=== PATIENT | female | born 2000 | race Caucasian/White ===

== ENCOUNTER 2018-11-09 14:48 | Outpatient (CLI) | payer OTHER ==
[~2018-11-09] VITALS: Ht 157.5 cm; Wt 75.1 kg
[~2018-11-09 14:48] MED LIST: AMOX500C6
[2018-11-09 15:30] VITALS: BP 112/66; PULSE 94; RESP 18; Ht 157.5 cm; Wt 75.1 kg
[2018-11-09] MEDS ORDERED: PNV11TAB PO (15:32)
--- NOTE | 2018-11-09 18:01 | PN ---
Triage Information Date/Time 11/09/2018 Reason for visit: Patient was claiming an 11pound puppy was bouncing on her abdomen Weeks of Gestation 34 weeks and 4 7 /Para 1 para 0 Diabetes: none Hypertention: none Additional information Patient denies any uterine contractions Objective Vital Signs Date Temp Pulse Resp B/P (MAP) Pulse Ox O2 O2 Flow FiO2 Time Delivery Rate 11/09/18 98.4 94 18 112/66 15:30 (81) Heart Rate Comments Reactive Contractions: None Exam Cervix is long and closed Results/Medications Imaging Results Normal biophysical profile. Disposition: Discharge Assessment/Plan Patient with no uterine contractions and currently feels better This service will follow patient as outpatient AZALIA CORTES MD Nov 09, 2018 18:01
--- NOTE | 2018-11-09 18:29 | TRIAGE ---
OB Triage Datetime Report Generated by CPN: 11/09/2018 18:28 Datetime: 11/09/2018 18:07 Stage of : OB Triage Datetime: 11/09/2018 17:16 Labor Evaluation Frequency: 0 Monitor Mode: External Pattern: Normal: <= 5 Contractions in 10 Minutes Resting Tone [place]: Relaxed Heart Rate FHR Baseline Rate: 135 Monitor Mode: External US Variability: Moderate 6-25 bpm Accelerations: 10X10 Decelerations: None Category: Category I Pain Assessment Pain Scale: 0 Pain Presence: None/Denies Pain Type: N/A Pain Goal: 3 Pain Relief Measures: Comfort Measures Datetime: 11/09/2018 16:23 Labor Evaluation Frequency: 7-10 Monitor Mode: External Duration (sec)2399: 50-60 Quality: Mild Pattern: Normal: <= 5 Contractions in 10 Minutes Resting Tone [place]: Relaxed Heart Rate FHR Baseline Rate: 145 Monitor Mode: External US Variability: Moderate 6-25 bpm Accelerations: 10X10 Decelerations: None Category: Category I Pain Assessment Pain Scale: 0 Pain Presence: None/Denies Pain Type: N/A Pain Goal: 3 Pain Relief Measures: Comfort Measures Datetime: 11/09/2018 15:56 Stage of : OB Triage Datetime: 11/09/2018 15:22 Stage of : OB Triage Assessment Type: Triage Maternal Assessment Level of Consciousness: Fully Conscious DTR's/Clonus: DTRs 2+; No Clonus Headache: Denies Blurred Vision: No Respiratory Effort: Unlabored; Regular Rhythm; Equal Expansion Breath Sounds, Left: Clear and Equal Breath Sounds, Right: Clear and Equal Nausea/Vomiting: Denies RUQ Epigastric Pain: Denies Facial Edema: None Temperature Route: Axillary Fall Risk Assessment History of Falling: (0) No Secondary Diagnosis: (0) No Ambulatory Aid: (0) Bedrest/Nurse Assist IV Therapy: (0) No Gait: (0) Normal/Bedrest/Immobile Mental Status: (0) Oriented to Own Ability Fall Score: 0 Fall Risk Score Definition: No Risk: No action required Labor Evaluation Frequency: X1 Monitor Mode: External Duration (sec)2399: 50 Quality: Mild Pattern: Normal: <= 5 Contractions in 10 Minutes Resting Tone [place]: Relaxed Heart Rate FHR Baseline Rate: 135 Monitor Mode: External US Variability: Moderate 6-25 bpm Accelerations: 10X10 Decelerations: None Pain Assessment Pain Scale: 8 Pain Presence: Intermittent Pain Type: Cramping Pain Location: Abdomen Pain Goal: 3 Pain Relief Measures: Comfort Measures Datetime: 11/09/2018 15:21 EGA: 34.1 Datetime: 11/09/2018 15:20 Time of Arrival: 11/09/2018 14:40 Arrived By: Ambulatory Arrived From: Home Chief Complaint: C/O 11LB DOG RAN ACROSS HER ABDOMEN, DENIES BLEEDING, OR LEAKING, BUT HAS INTERMI TTENT ABDOMINAL PAIN Movement: Present Contractions: Denies/Absent Rupture of Membranes: Denies Vaginal Bleeding: None Vaginal Discharge: Denies Recent Sexual Intercouse: Denies Abdominal Trauma: Not Applicable Patient Complaints: Cramping Time Provider Notified: 11/09/2018 15:56 Provider Notified: john Initial Plan: MONITOR, bpp, ve
== END 2018-11-09 18:20 | disposition home or self-care (01) ==
LOC: OBT 14:48 → L-D 14:48 → OBT 18:20
PROVIDERS: ATTEND Obstetrics & Gynecology
DX: O60.03 Preterm labor without delivery, third trimester (principal); Z3A.34 34 weeks gestation of pregnancy
CPT/HCPCS: 76818; G0463

== ENCOUNTER 2018-11-19 08:55 | Outpatient (CLI) | payer OTHER ==
[~2018-11-19] VITALS: Ht 157.5 cm; Wt 75.8 kg
[~2018-11-19 08:55] MED LIST changes: -AMOX500C6; +PNV11TAB PO
[2018-11-19 09:20] VITALS: BP 107/67; RESP 18
[2018-11-19 09:21] VITALS: Ht 157.5 cm; Wt 75.8 kg
[2018-11-19] MEDS ORDERED: LACTATED RINGER'S 1,000 ML IV SCH (10:00)
[2018-11-19] MEDS ORDERED: TERBUTALINE 1 MG/ML INJ SC ONE (10:00)
--- NOTE | 2018-11-19 11:25 | PN ---
Triage Information Date/Time Reason for visit: Uterine contractions Weeks of Gestation 35+ /Para 1/0 Diabetes: none Hypertention: none Objective Vital Signs Date Temp Pulse Resp B/P (MAP) Pulse Ox O2 O2 Flow FiO2 Time Delivery Rate 11/19/18 98.5 18 107/67 Room Air 09:20 (80) Heart Rate: 140's Contractions: None Results/Medications Result Diagram: 11/19/18 1040 Results 24 hrs Laboratory Tests Test 11/19/18 09:05 11/19/18 10:40 Urine Color YELLOW Urine Clarity SLIGHTLY CLOUDY A Urine pH 6.0 Urine Specific [place] 1.016 Urine Ketones NEGATIVE Urine Nitrite NEGATIVE Urine Bilirubin NEGATIVE Urine Urobilinogen NEGATIVE Urine Leukocyte Esterase TRACE A Urine Microscopic RBC 2 Urine Microscopic WBC 3 Urine Squamous Epithelial Cells MODERATE Urine Bacteria FEW A Urine Hemoglobin NEGATIVE Urine Glucose NEGATIVE Urine Total Protein NEGATIVE White Blood Count 9.6 Red Blood Count 3.66 L Hemoglobin 11.3 L Hematocrit 34.1 L Mean Corpuscular Volume 93.2 Mean Corpuscular Hemoglobin 30.9 Mean Corpuscular Hemoglobin Concent 33.1 Red Cell Distribution Width 13.3 Platelet Count 173 Mean Platelet Volume 10.4 Immature Granulocytes % 1.400 H Neutrophils % 57.8 Lymphocytes % 32.8 Monocytes % 7.6 Eosinophils % 0.1 Basophils % 0.3 Nucleated Red Blood Cells % 0.0 Immature Granulocytes # 0.130 H Neutrophils # 5.5 Lymphocytes # 3.1 H Monocytes # 0.7 Eosinophils # 0.0 Basophils # 0.0 Nucleated Red Blood Cells # 0.0 Medications Current Medications Lactated Ringer's 1,000 ml @ 250 mls/hr Q4H IV Last administered on 11/19/18at 10:51; Admin Dose 250 MLS/HR; Start 11/19/18 at 10:00 Disposition: Discharge Assessment/Plan BPP 05/23 Questions answered Precautions discussed Follow up with provider GRACY ROWLEY M.D. Nov 19, 2018 11:25
--- NOTE | 2018-11-19 11:26 | TRIAGE ---
OB Triage Datetime Report Generated by CPN: 11/19/2018 11:25 Datetime: 11/19/2018 11:00 Stage of : OB Triage Maternal Assessment Level of Consciousness: Fully Conscious Labor Evaluation Frequency: OCCASIONAL Monitor Mode: External Duration (sec)2399: 40-100 Quality: Mild Resting Tone [place]: Relaxed Heart Rate FHR Baseline Rate: 145 Monitor Mode: External US Variability: Moderate 6-25 bpm Accelerations: 15X15 Decelerations: None Category: Category I Pain Assessment Pain Scale: 0 Pain Goal: 3 Membrane Status: Intact Vaginal Bleeding: None Datetime: 11/19/2018 10:00 Stage of : OB Triage Maternal Assessment Level of Consciousness: Fully Conscious Labor Evaluation Frequency: 1-6 Monitor Mode: External Duration (sec)2399: 50-110 Quality: Mild Resting Tone [place]: Relaxed Heart Rate FHR Baseline Rate: 145 Monitor Mode: External US Variability: Moderate 6-25 bpm Accelerations: 15X15 Decelerations: None Category: Category I Pain Assessment Pain Scale: 0 Pain Goal: 3 Membrane Status: Intact Vaginal Bleeding: None Datetime: 11/19/2018 09:42 Vaginal Exam Dilatation (cms): 0.0 Station: -3 Exam By: khemani Cervix, Position: Posterior Datetime: 11/19/2018 09:17 Assessment Type: Triage Maternal Assessment Level of Consciousness: Fully Conscious DTR's/Clonus: DTRs 2+; No Clonus Headache: Denies Blurred Vision: No Respiratory Effort: Unlabored; Regular Rhythm; Equal Expansion Breath Sounds, Left: Clear and Equal Breath Sounds, Right: Clear and Equal Nausea/Vomiting: Denies RUQ Epigastric Pain: Denies Lower Extremities Edema: None Degree: None Upper Extremities Edema: None Degree: None Facial Edema: None Fall Risk Assessment History of Falling: (0) No Secondary Diagnosis: (0) No Ambulatory Aid: (0) Bedrest/Nurse Assist IV Therapy: (0) No Gait: (0) Normal/Bedrest/Immobile Mental Status: (0) Oriented to Own Ability Fall Score: 0 Fall Risk Score Definition: No Risk: No action required Datetime: 11/19/2018 09:16 Time of Arrival: 11/19/2018 08:53 EGA: 35.4 Arrived By: Ambulatory Arrived From: Home Chief Complaint: PT. HERE C/O UC'S Movement: Present Contractions: Irregular Rupture of Membranes: Denies Vaginal Bleeding: None Vaginal Discharge: Denies Recent Sexual Intercouse: Denies Abdominal Trauma: Not Applicable Patient Complaints: Contractions; Cramping Time Provider Notified: 11/19/2018 09:51 Provider Notified: ROSELYN Initial Plan: IV HYDRATION/SQ TERB/UA C/S/CBC/BPP Datetime: 11/19/2018 09:15 Monitor Mode: External Monitor Mode: External US Datetime: 11/09/2018 15:22 Fall Score: 0 Fall Risk Score Definition: No Risk: No action required Datetime: 11/09/2018 15:21 EGA: 34.1
== END 2018-11-19 11:30 | disposition home or self-care (01) ==
LOC: L-D 08:55 → OBT 08:55
PROVIDERS: ATTEND Obstetrics & Gynecology
DX: O62.9 Abnormality of forces of labor, unspecified (principal); Z3A.35 35 weeks gestation of pregnancy
CPT/HCPCS: 36415; 76818; 81001; 85025; 87086; 96360; 96361; 96372; J3105; J7120; Z7500; G0463

== ENCOUNTER 2018-12-09 11:03 | Inpatient (IN) | payer OTHER ==
[~2018-12-09] VITALS: Ht 157.5 cm; Wt 78.2 kg
[2018-12-09 11:15] VITALS: Ht 157.5 cm; Wt 78.2 kg
[2018-12-09] MEDS ORDERED: LACTATED RINGER'S 1,000 ML IV PRN (12:29)
[2018-12-09] MEDS ORDERED: OXYTOCIN 30 UNITS/LR 500 ML IV SCH ×2 (12:30)
[2018-12-09] MEDS ORDERED: MINERAL OIL LIGHT 10 ML VIAL TOP PRN (12:30)
[2018-12-09] MEDS ORDERED: OXYTOCIN 30 UNITS/LR 500 ML IV PRN (12:30)
[2018-12-09] MEDS ORDERED: CARBOPROST 250 MCG INJ IM PRN (12:30)
[2018-12-09] MEDS ORDERED: IBUPROFEN 600 MG TAB PO PRN (12:30)
[2018-12-09] MEDS ORDERED: MISOPROSTOL 200 MCG TAB PR PRN (12:30)
[2018-12-09] MEDS ORDERED: LIDOCAINE 1% (MPF) 30 ML INJ INJ PRN (12:30)
[2018-12-09] MEDS ORDERED: METHYLERGONOVINE 0.2 MG INJ IM PRN (12:30)
[2018-12-09] MEDS ORDERED: OXYCODONE/ASPIRIN (4.88/325) TAB PO PRN (12:30)
[2018-12-09] MEDS: LACTATED RINGER'S 1,000 ML IV SCH ×3 (12:41→21:39)
[2018-12-09 12:44] VITALS: BP 122/80; PULSE 77; RESP 20
--- NOTE | 2018-12-09 12:57 | HP ---
Date/Time of Note Date/Time of Note DATE: 12/09/18 TIME: 12:53 OB - History Hx of Present Free Text/Dictation 18-year-old female 140 at 38+ weeks admitted complaining of onset of labor contractions the day before which became intense this a.m. Last Menstrual Period: Mar 15, 2018 Estimated Due Date: December 20, 2018 : 1 Para: 0 Care: Good Care Ultrasounds: Normal mid trimester US Obstetrical Complications: None Medical Complications: None Past Family/Social History * Past Medical, Surgical, Family and Obstetric Histories reviewed from chart. Blood Type: O+ RPR/VDRL: Negative GBS Status: Unknown HBsAG: Negative OB Admission Exam Vital Signs Vital Signs Vital Signs Date Temp Pulse Resp B/P (MAP) Pulse Ox O2 O2 Flow FiO2 Time Delivery Rate 12/09/18 97.8 77 20 122/80 Room Air 12:44 (94) Physical Exam HEENT: WNL Heart: Rhythm Normal Lungs: Clear, Equal Abdomen: WNL Extremities: Normal Reflexes: Normal Cervical Dilatation: 2cm Effacement: 100% Station: -2 Membranes: Intact Heart Rate: 140's Accelerations: Accelerations Present Decelerations: No Decelerations Varibility: Marked Contractions on Admission: < 5 Minutes Apart Date/Time Contractions Began: and 2018 Frequency of Contractions: Every 5 minutes Duration: Over 1 minute Intensity: Moderate Last 72 hours Lab Results CBC & BMP 12/09/18 12:10 OB Assessment/Plan Other Assessment: Term gestation in labor contractions Other plan: Proceed with spontaneous contractions AZALIA CORTES MD Dec 09, 2018 12:56
[2018-12-09] MEDS: BUTORPHANOL 2 MG INJ IV PRN ×2 (18:20→20:26)
[2018-12-09] MEDS ORDERED: FENTAnyl 2MCG/ML-ROPIV 0.2% 100 ML ONE (21:59)
--- NOTE | 2018-12-09 22:10 | PREAC ---
Date/Time of Note Date/Time of Note DATE: 12/09/18 TIME: 22:09 Anesthesia Eval and Record Evaluation Time Pre-Procedure Interview DATE: 12/09/18 TIME: 22:09 Age 18 Sex female NPO: 8 hrs Preoperative diagnosis Labor Pain Planned procedure Labor Epidural Past Medical History Past Medical History: Includes Heme: Anemia : : (1), Para: (0), Gestational age: (38) Surgery & Anesthesia Issues No known issue Meds Anticoagulation: No Beta Christiana within 24 hr: No Reason Beta Christiana not given: Pt. not on B-Christiana Reported Medications [id number] ( 19) 1 Each Tablet, 1 TAB PO DAILY, TAB 11/09/18 Current Medications Lactated Ringer's 1,000 ml @ 125 mls/hr Q8H IV Last administered on 12/09/18at 21:39; Admin Dose 125 MLS/HR; Start 12/09/18 at 12:29 Butorphanol Tartrate (Stadol) 2 mg Q2H PRN IV .PAIN Last administered on 12/09/18at 20:26; Admin Dose 2 MG; Start 12/09/18 at 12:30 Lidocaine (Xylocaine 1% (Mpf)) 30 ml ONCE PRN INJ .EPISIOTOMY; Start 12/09/18 at 12:30 Oxytocin/Lactated Ringer's 500 ml @ 500 mls/hr ONCE POST IV ; Start 12/09/18 at 12:30 Oxytocin/Lactated Ringer's 500 ml @ 125 mls/hr POST IV ; Start 12/09/18 at 12:30 Ibuprofen (Motrin) 600 mg ONCE PRN PO .PAIN 1-5; Start 12/09/18 at 12:30 Oxycodone/Aspirin (Percodan) 2 tab ONCE PRN PO .PAIN 6-10; Start 12/09/18 at 12:30 Lactated Ringer's 1,000 ml @ 2,000 mls/hr Q30M PRN IV .ANESTHESIA; Start 12/09/18 at 12:29 Oxytocin/Lactated Ringer's 500 ml @ 0 mls/hr ONCE PRN IV .VAGINAL BLEEDING; Start 12/09/18 at 12:30 Methylergonovine Maleate (Methergine) 0.2 mg ONCE PRN IM .VAGINAL BLEEDING; Start 12/09/18 at 12:30 Carboprost Tromethamine (Hemabate) 250 mcg ONCE PRN IM .VAGINAL BLEEDING; Start 12/09/18 at 12:30 Misoprostol (Cytotec) 1,000 mcg ONCE PRN IA .VAGINAL BLEEDING; Start 12/09/18 at 12:30 Mineral Oil (Muri-Lube) 10 ml PRN PRN TOP lubricant; Start 12/09/18 at 12:30 Meds reviewed: Yes Allergies Coded Allergies: No Known Allergies (Verified Allergy, Mild, 12/09/18) Allergies Reviewed: Yes Labs/Studies Labs Reviewed: Reviewed by anesthesiologist Result Diagram: 12/09/18 1210 Laboratory Tests 12/09/18 12:10 Blood Bank Test 12/09/18 12:10 Antibody Screen NEGATIVE Blood Type O POSITIVE Rh Immune Globulin Candidate NO test: Positive Studies: ECG (n/a), CXR (n/a) Pre-procedure Exam Last vitals Vital Signs Date Temp Pulse Resp B/P (MAP) Pulse Ox O2 O2 Flow FiO2 Time Delivery Rate 12/09/18 97.8 77 20 122/80 Room Air 12:44 (94) Airway: Adequate mouth opening, Adequate thyromental dist Mallampati: Mallampati II Teeth: Normal Lung: Normal Heart: Normal ASA Physical Status ASA physical status: 2 Emergency: None Planned Anesthetic Neuraxial: Epidural Planned Pain Management Epidural Pre-operative Attestations Prior to commencing anesthesia and surgery, the patient was re-evaluated, there was verification of: *The patient's identity *The results of appropriate recent lab work and preoperative vital signs *The above evaluation not changing prior to induction *Anesthetic plan, risk benefits, alternative and complications discussed with patient/family; questions answered; patient/family understands, accepts and wishes to proceed. ZORA GARCIA MD Dec 09, 2018 22:10
--- NOTE | 2018-12-09 22:12 | PAC ---
Date/Time of Note Date/Time of Note DATE: 12/09/18 TIME: 22:12 Post-Anesthesia Notes Post-Anesthesia Note Last documented vital signs Vital Signs Date Temp Pulse Resp B/P (MAP) Pulse Ox O2 O2 Flow FiO2 Time Delivery Rate 12/09/18 98.0 77 20 122/80 99 Room Air 22:02 (94) Activity: WNL Respiratory function: WNL Cardiovascular function: WNL Mental status: Baseline Pain reasonably controlled: Yes Hydration appropriate: Yes Nausea/Vomiting absent: Yes ZORA GARCIA MD Dec 09, 2018 22:12
[2018-12-09] MEDS ORDERED: NALOXONE (0.4 MG/ML) INJ IV PRN (22:30)
[2018-12-09] MEDS ORDERED: FENTAnyl 2MCG/ML-ROPIV 0.2% 100 ML BAG EPI SCH (22:30)
[2018-12-09] MEDS ORDERED: EPHEDrine SULFATE 50 MG/5 ML SYG IV PRN (22:30)
[2018-12-10] MEDS: LACTATED RINGER'S 1,000 ML IV SCH ×3 (02:28→05:59)
[2018-12-10] MEDS ORDERED: AMPICILLIN 2 GM/NS (PMX) 100 ML IV ONE (06:00)
[2018-12-10] MEDS ORDERED: ACETAMINOPHEN 325 MG TAB PO PRN (08:00)
[2018-12-10] MEDS ORDERED: OXYTOCIN 30 UNITS/LR 500 ML IV SCH (08:00)
[2018-12-10] MEDS ORDERED: GENTAMICIN 120 MG/NS (PMX) 100 ML IVPB ONE (09:30)
[2018-12-10] MEDS ORDERED: AMPICILLIN 1 GM/NS (PMX) 50 ML IV SCH (10:00)
[2018-12-10] MEDS ORDERED: KETOROLAC 30 MG INJ IV STA (12:48)
[2018-12-10] MEDS ORDERED: ACETAMINOPHEN 500 MG TAB PO STA (12:48)
--- NOTE | 2018-12-10 12:48 | LDN ---
Date/Time of Note Date/Time of Note DATE: 12/10/18 TIME: 12:45 Delivery Summary Normal spontaneous vaginal delivery of viable infant over intact perineum Weeks of Gestation 38 weeks and 4 days Placenta Delivered: Spontaneously, Intact & Complete Meconium: Thick, Particulate Episiotomy: No Perineal laceration: 0 Laceration repair: 2 times a vaginal laceration on the sulcus was repaired using 2-0 Vicryl stitch 2 vestibular lacerations on inner side of either labia minora was very repaired using running sutures of 4-0 chromic Anesthesia type: Epidural Estimated blood loss: 200 Sponge & Needle done & correct: Yes All needle counts correct: Yes Any foreign bodies felt in the: No Infant Delivery Information Sex Infant Sex: female Apgars 1 Minute: 9 5 Minute: 9 Suctioning Nose & mouth suctioned at robbin: Yes Delee suction performed: No Umbilical Cord Umbilical cord with: 3 Vessels Cord presentations: no nuchal cord Cord Blood was obtained: Yes Mother & Baby Disposition Disposition Mom & Baby to Maternity; Good: Yes (Mother and baby were recovered in good condition) Mom transferred to: Other (Maternity) Baby to NICU: No AZALIA CORTSE MD Dec 10, 2018 12:48
[2018-12-10] MEDS ORDERED: AZITHROMYCIN 500MG/NS (PMX) 250 ML IVPB ONE (13:00)
[2018-12-10] MEDS: LACTATED RINGER'S 1,000 ML IV* SCH (16:49)
[2018-12-10] MEDS ORDERED: HYDROCODONE/APAP (5/325) TAB PO PRN ×2 (17:00)
[2018-12-10] MEDS ORDERED: MISOPROSTOL 200 MCG TAB PR PRN (17:00)
[2018-12-10] MEDS ORDERED: CARBOPROST 250 MCG INJ IM PRN (17:00)
[2018-12-10] MEDS ORDERED: OXYTOCIN 30 UNITS/LR 500 ML IV PRN (17:00)
[2018-12-10] MEDS ORDERED: ZOLPIDEM 5 MG TAB PO PRN (17:00)
[2018-12-10] MEDS ORDERED: WITCH HAZEL/GLYCERIN PAD PR PRN (17:00)
[2018-12-10] MEDS ORDERED: BENZOCAINE 20% 56 ML SPRAY TOP PRN (17:00)
[2018-12-10] MEDS ORDERED: LANOLIN HPA 1 PKT TOP PRN (17:00)
[2018-12-10] MEDS ORDERED: METHYLERGONOVINE 0.2 MG INJ IM PRN (17:00)
[2018-12-10] MEDS ORDERED: DIBUCAINE 1% 30 GM OINT TOP PRN (17:00)
[2018-12-10 17:30] VITALS: BP 106/55; PULSE 79; RESP 19
[2018-12-10] MEDS ORDERED: GENTAMICIN 80 MG/NS (PMX) 50 ML IVPB SCH (17:30)
[2018-12-10] MEDS ORDERED: CEPHALEXIN 500 MG CAP PO SCH (18:00)
[2018-12-10] MEDS: IBUPROFEN 600 MG TAB PO SCH (18:00)
[2018-12-10 18:30] VITALS: BP 114/62; PULSE 81; RESP 20
[2018-12-10 20:05] VITALS: BP 113/55; PULSE 90; RESP 18
[2018-12-10] MEDS: SENNA/DOCUSATE NA (8.6MG/50MG) TAB PO SCH (21:04)
[2018-12-10] MEDS: MAGNESIUM HYDROXIDE 30ML CUP PO SCH (21:04)
[2018-12-11] MEDS ORDERED: CEPHALEXIN 500 MG CAP PO SCH
[2018-12-11 00:05] VITALS: PULSE 85; RESP 18
[2018-12-11] MEDS: IBUPROFEN 600 MG TAB PO SCH ×4 (00:26→18:07)
[2018-12-11] MEDS: LACTATED RINGER'S 1,000 ML IV* SCH ×3 (00:49→16:49)
[2018-12-11] MEDS: CEPHALEXIN 250 MG CAP PO SCH ×4 (00:58→18:07)
[2018-12-11 04:00] VITALS: BP 110/60; PULSE 89; RESP 18
[2018-12-11 08:00] VITALS: BP 107/69; PULSE 80; RESP 20
[2018-12-11] MEDS: SENNA/DOCUSATE NA (8.6MG/50MG) TAB PO SCH ×2 (08:41→21:00)
[2018-12-11] MEDS: MAGNESIUM HYDROXIDE 30ML CUP PO SCH ×2 (08:41→21:00)
--- NOTE | 2018-12-11 10:02 | DS ---
Date/Time of Note Date/Time of Note home today or next day DATE: 12/11/18 TIME: 10:00 Obstetrical Discharge Record Final Diagnosis Final Diagnosis: Term delivered Other Final Diagnosis S/P vaginal delivery Vaginal Delivery Obstetrical Delivery: Spontaneous, Laceration, Repaired Complications Augmentation: Yes Condition on Discharge Physical Assessment Last Vitals: see nurses notes Voiding: Yes Bowel Movement: Yes Breast: Soft, non-tender, Filling Fundus: Firm Abdomen and Incision: abdomen is soft and fundus is firm Episiotomy: perineum is clean Calf Tenderness: No Patient Condition: Good AZALIA CORTES MD Dec 11, 2018 10:02
[2018-12-11] MEDS ORDERED: IBUP-1542 PO (10:04)
--- NOTE | 2018-12-11 10:04 | PD.PPDC ---
[employer] Discharge Instruction Provider Information Physician Information 18 y/o female had vaginal delivery Diagnosis [id number] Final Diagnosis: Wxorf3s S/P vaginal delivery Condition [id number] Patient Condition: Dcezo2f Good Diet [id number] Diet: Ujgum7w Resume Regular Diet Activity/Restrictions Arqii9Cu Activity: [id number] Normal Activity May Shower [id number] Restrictions: Nhsua0r Nothing in the Vagina [id number] Return to Work or School: Pazfj6y Jan 28, 2019 Follow-up Follow-up with Physician: 2, 4, Week/Weeks (in clinic) Return to clinic for [id number] OB Instructions: Ibhmz1n Breast Tenderness Depression Comment: pelvic rest x 6 weeks AZALIA CORTES MD Dec 11, 2018 10:04
[2018-12-11 16:00] VITALS: BP 98/64; PULSE 76; RESP 19
[2018-12-11 22:02] VITALS: BP 109/68; PULSE 72; RESP 18
[2018-12-12] MEDS: CEPHALEXIN 250 MG CAP PO SCH ×2 (00:18→05:58)
[2018-12-12] MEDS: IBUPROFEN 600 MG TAB PO SCH ×3 (00:19→11:32)
[2018-12-12] MEDS: LACTATED RINGER'S 1,000 ML IV* SCH (00:49)
[2018-12-12 04:25] VITALS: BP 108/60; PULSE 70
[2018-12-12 08:00] VITALS: BP 104/75; PULSE 56; RESP 18
[2018-12-12] MEDS: MAGNESIUM HYDROXIDE 30ML CUP PO SCH (09:00)
[2018-12-12] MEDS ORDERED: MEASLES,MUMPS,RUBELLA VACCINE INJ SC* ONE (09:00)
[2018-12-12] MEDS: SENNA/DOCUSATE NA (8.6MG/50MG) TAB PO SCH (09:00)
[2018-12-12] MEDS ORDERED: VARICELLA VACCINE LIVE/PF 1,350 UNIT/0.5 ML ML SC* ONE (09:00)
[2018-12-12] MEDS ORDERED: DIPHTH/TET/ACEL PERTUSS (ADULT) 0.5 ML VIAL IM* ONE (09:00)
--- NOTE | 2018-12-13 15:27 | DELSUM ---
Delivery Summary A-C Datetime Report Generated by CPN: 12/13/2018 15:27 DELIVERY PERSONNEL Checking Department Supervisor: Sebunnya, Phoebe MATERNAL INFORMATION Delivery Anesthesia: Local; Epidural Medications in Delivery: lr 500ml pitocin 30 units Delivery QBL (ml): 200 Placenta Cultured: No Maternal Complications: Other Other Maternal Complications: IN LABOR RN Comments: NENA RN ORT LABOR SUMMARY EDC: 12/20/2018 00:00 No. Babies in Womb: 0 Attempted: No Labor Anesthesia: Epidural LABOR INFORMATION Reason for Induction: Not Applicable Onset of Labor: 12/09/2018 10:00 Complete Dilatation: 12/10/2018 11:00 Oxytocin: N/A Group B Beta Strep: Negative Antibiotics # of Doses: 3 Antibiotics Time of Last Dose: 12/10/2018 10:13 Steroids Given: None Reason Steroids Not Administered: Not Applicable MEMBRANES Membranes Rupture Method: Spontaneous Rupture of Membranes: 12/09/2018 17:40 Length of Rupture (hr): 18.53 Amniotic Fluid Color: Heavy Meconium Amniotic Fluid Amount: Moderate Amniotic Fluid Odor: Normal STAGES OF LABOR Stage 1 hr: 25 Stage 1 min: 0 Stage 2 hr: 1 Stage 2 min: 12 Stage 3 hr: 0 Stage 3 min: 2 Total Time in Labor hr: 26 Total Time in Labor min: 14 VAGINAL DELIVERY Episiotomy: Median Laceration Extension: N/A Laceration Type: Vaginal Laceration Repair: Yes Initial Vag Sponge Count: 10 Final Vag Sponge Count: 10 Initial Vag Sharps Count: 4 Final Vag Sharps Count: 4 Sponge Count Correct: Yes; Vaginal Sweep Performed Sharps Count Correct: Yes BABY A INFORMATION Delivery Date/Time: 12/10/2018 12:12 Method of Delivery: Vaginal Born in Route : No : N/A Forceps: N/A Vacuum Extraction: N/A Shoulder Dystocia : N/A SHOULDER DYSTOCIA BABY A Infant Delivery Date/Time: 12/10/2018 12:12 PRESENTATION/POSITION BABY A Presentation: Cephalic Cephalic Presentation: Vertex Vertex Position: Left Occipital Anterior Breech Presentation: N/A PLACENTA INFORMATION BABY A Placenta Delivery Time : 12/10/2018 12:14 Placenta Method of Delivery: Spontaneous Placenta Status: Delivered SCORES BABY A Heart Rate 1 min: >100 bpm Resp Effort 1 min: Good Cry Reflex Irritability 1 min: Cough/Sneeze/Pulls Away Muscle Tone 1 min: Active Motion Color 1 min: Body [place], Extremit Blue Resuscitation Effort 1 min: Tactile Stimulation SCORE 1 MIN: 9 Heart Rate 5 min: >100 bpm Resp Effort 5 min: Good Cry Reflex Irritability 5 min: Cough/Sneeze/Pulls Away Muscle Tone 5 min: Active Motion Color 5 min: Body [place], Extremit Blue Resuscitation Effort 5 min: Tactile Stimulation SCORE 5 MIN: 9 INFORMATION BABY A Gestational Age at Delivery: 38.4 Gestational Status: Early Term- 37- 38.6 Weeks Infant Outcome : Liveborn Infant Condition : Stable Infant Sex: Female IDENTIFICATION/MEDS BABY A ID Band Number: [id number] ID Band Location: Right Leg; Left Arm Sensor Number: [id number] Sensor Location : Cord Clamp Vitamin K Given : Not Given Erythromycin Given: Not Given WEIGHT/LENGTH BABY A Birthweight (gm): 3460 Weight (lb): 7 Infant Weight (oz): 10 Length (in): 19.75 Infant Length (cm): 50.17 CORD INFORMATION BABY A No. Cord Vessels: 3 Nuchal Cord : N/A Nuchal Cord- Other: 0 True Knot: 0 Cord Blood Taken: Yes Banking/Donate Info: NO Infant Suction: Mouth; Nose ASSESSMENT BABY A Complications: Extended Tachycardi; Meconium Physical Findings at Delivery: Abdominal Wall Defect Physical Findings- Other: MATERNAL TEMP 99.6 ,TYLENOL 650MG PO GIVEN AT 0753, AMPICILLIN AND GENTA MYCIN IVPB GIVEN Respirations: Appears Normal Care By: jimmy españa rn Transferred To: Remains with Mother
== END 2018-12-12 15:27 | disposition home or self-care (01) | DRG 807 ==
LOC: OBT 11:03 → L-D 11:04 → OBT 11:41 → L-D 11:41 → PP1 12-10 17:01
PROVIDERS: ADMIT Obstetrics & Gynecology; ATTEND Obstetrics & Gynecology
PROC: 4A1HXCZ Monitoring of Products of Conception, Cardiac Rate, External Approach (ICD-10-PCS; 2018-12-09)
PROC: 10E0XZZ Delivery of Products of Conception, External Approach (ICD-10-PCS; principal; 2018-12-10)
PROC: 0HQ9XZZ Repair Perineum Skin, External Approach (ICD-10-PCS; 2018-12-10)
PROC: 0UQGXZZ Repair Vagina, External Approach (ICD-10-PCS; 2018-12-10)
PROC: 3E0234Z Introduction of Serum, Toxoid and Vaccine into Muscle, Percutaneous Approach (ICD-10-PCS; 2018-12-12)
DX: O71.4 Obstetric high vaginal laceration alone (principal); Z37.0 Single live birth; O70.0 First degree perineal laceration during delivery; Z3A.38 38 weeks gestation of pregnancy; Z23 Encounter for immunization
CPT/HCPCS: 62322; 85025; 85610; 85730; 86592; 86850; 86900; 86901; 87340; 90716; 99464; G0463; J0290; J0456; J0595; J1885; J2590; J3010; J7120